=== PATIENT | female | born 1950 | race Caucasian/White ===

== ENCOUNTER 2019-08-27 06:03 | Day surgery (SDC) | payer MEDICARE, MEDICAID ==
[2019-08-26 15:38] LABS: ALBUMIN 3.5 G/DL (3.4-5.0); ANION GAP 7 (8-16); BLOOD UREA NITROGEN 17 MG/DL (7-18); BUN/CREATININE RATIO 21.8 (6.6-38.0); CHLORIDE 103 MMOL/L (99-107); CREATININE 0.78 MG/DL (0.40-0.90); GLUCOSE 121 MG/DL (70-104); POTASSIUM 4.1 MMOL/L (3.5-5.1); SODIUM 140 MMOL/L (135-145); TOTAL CARBON DIOXIDE 29.8 MMOL/L (24-32); eGFR 74 ML/MIN
[2019-08-26 15:41] LABS: PARTIAL THROMBOPLASTIN TIME 28 SECONDS (22-32)
[2019-08-26 15:43] LABS: BASOPHILS % (AUTO) 0.8 % (0-1); EOSINOPHILS # (AUTO) 0.2 X10'3 (0-0.9); EOSINOPHILS % (AUTO) 2.8 % (0-6); HEMATOCRIT 45.2 % (35.0-45.0); HEMOGLOBIN 14.9 g/dl (12.0-16.0); LYMPHOCYTES # (AUTO) 1.4 X10'3 (1.1-4.8); LYMPHOCYTES % (AUTO) 25.1 % (21-51); MEAN CORPUSCULAR HEMOGLOBIN 30.8 PG (27.0-31.0); MEAN CORPUSCULAR VOLUME 93.5 FL (78-98); MEAN PLATELET VOLUME 7.4 FL (7.4-10.4); MONOCYTES # (AUTO) 0.5 X10'3 (0-0.9); MONOCYTES % (AUTO) 9.2 % (2-12); NEUTROPHILS # (AUTO) 3.5 X10'3 (1.8-7.7); NEUTROPHILS % (AUTO) 62.1 % (42-75); PLATELET COUNT 338 X10'3 (140-440); RED BLOOD COUNT 4.84 X10'6 (4.20-5.60); WHITE BLOOD COUNT 5.6 X10'3 (4.5-11.0)
[~2019-08-27] VITALS: Ht 157.5 cm; Wt 45.6 kg
[2019-08-27] VITALS (11 sets, daily range): BP systolic 123–156; BP diastolic 79–97
[2019-08-27] MEDS ORDERED: LIDOcaine/PRILOcaine 5gm cream TP ONE (06:30)
[2019-08-27] MEDS ORDERED: normal saline 1,000 ML IV SCH (06:30)
[2019-08-27] MEDS ORDERED: LORazepam 0.5 MG tablet PO PRN (06:30)
[2019-08-27] MEDS ORDERED: diphenhydrAMINE 25mg capsule PO PRN (06:30)
[2019-08-27] MEDS ORDERED: FLO110IN INH (06:40)
[2019-08-27] MEDS ORDERED: MULT1CAP34 PO (06:40)
[2019-08-27] MEDS ORDERED: APIX5TAB3 PO (06:40)
[2019-08-27] MEDS ORDERED: UBID100C45 PO (06:40)
--- NOTE | 2019-08-27 07:15 | NUR ---
Pt has NS running as ordered.
[2019-08-27] MEDS ORDERED: verapamil 2.5 mg/ml inj IV ONE (07:42)
[2019-08-27] MEDS ORDERED: midazolam 2 mg/2 ml injection ONE (07:42)
[2019-08-27] MEDS ORDERED: fentaNYL/PF 50MCG/1 ML 2ML syringe ONE (07:43)
[2019-08-27] MEDS ORDERED: nitroGLYCERIN-Tridil 50MG/D5W 250 ML IV ONE (07:43)
[2019-08-27] MEDS ORDERED: iohexol 350 MG/ML 50ML vial IV ONE (07:43)
[2019-08-27] MEDS ORDERED: heparin 1,000 UNITS/NS 500ml 500 ML ONE ×2 (07:43)
[2019-08-27] MEDS ORDERED: iohexol 350MG/ML 100ml bottle IV ONE (07:43)
[2019-08-27] MEDS ORDERED: LIDOcaine 1% (10mg/ml)w/preservative injection 20ml MDV ONE (07:43)
[2019-08-27] MEDS ORDERED: heparin 1,000unit/ml 10ml vial 10 ML ONE (07:43)
[2019-08-27 08:51] LABS: ISTAT Hct MIX 42 %PCV (35-48); ISTAT O2 SATURATION MIX VENOUS 68 % (60-80); ISTAT SOURCE MIX
[2019-08-27 08:51] LABS: ISTAT HGB ART 14.3 g/dl (12.0-16.0); ISTAT Hct ART 42 %PCV (35-48); ISTAT O2 SATURATION ARTERIAL 95 % (95-98); ISTAT SOURCE ART
--- NOTE | 2019-08-27 13:51 | NUR ---
Spoke to pt son, per pt request to give discharge time, pt confirmed he will be here.
--- NOTE | 2019-08-27 15:00 | NUR ---
pt right radial and AC site stable, dressing was removed on AC and wrist site. Dressing was replaced, CD&I. Pt denies pain. VS stable as charted. Pt was educated on removing dressing after 24 hours.
== END 2019-08-27 15:10 | disposition home or self-care (01) ==
LOC: SSTAY O 06:03
PROVIDERS: ATTEND Internal Medicine Cardiovascular Disease
DX: I25.10 Atherosclerotic heart disease of native coronary artery without angina pectoris (principal); R94.31 Abnormal electrocardiogram [ECG] [EKG]; I36.1 Nonrheumatic tricuspid (valve) insufficiency; J44.9 Chronic obstructive pulmonary disease, unspecified; M06.9 Rheumatoid arthritis, unspecified; I27.20 Pulmonary hypertension, unspecified; Z86.19 Personal history of other infectious and parasitic diseases; Z80.1 Family history of malignant neoplasm of trachea, bronchus and lung; Z82.61 Family history of arthritis
CPT/HCPCS: 36415; 80048; 82803; 85014; 85025; 85610; 85730; 93005; 93458; 99152; 99153; C1769; J1644; J2001; J2250; J3010; J7030; Q0163; Q9967; 93460; C1760; J3490